=== PATIENT | female | born 1995 | race Caucasian/White ===

== ENCOUNTER 2017-11-24 17:54 | Emergency (ER) | payer MEDICAID ==
[2017-11-24] MEDS ORDERED: Clindamycin HCl 150 MG Cap PO ONE (19:05)
--- NOTE | 2017-11-24 19:14 | EDM.PDOC ---
ED HPI GENERAL MEDICAL PROBLEM - General Chief Complaint: General Stated Complaint: TOOTH PAIN Time Seen by Provider: 11/24/17 19:00 Source of Information: Reports: Patient History Limitations: Reports: No Limitations - History of Present Illness INITIAL COMMENTS - FREE TEXT/NARRATIVE: Specimens single tooth pain 2-3 days duration. She last dose of Tylenol was yesterday. She is allergic to penicillins. 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 - Past Surgical History HEENT Surgical History: Reports: Tonsillectomy, Other (See Below) Other HEENT Surgeries/Procedures: ear surgeries as a child GI Surgical History: Reports: Cholecystectomy Social & Family History - Tobacco Use Smoking Status *Q: Never Smoker - Caffeine Use Caffeine Use: Reports: Soda - Recreational Drug Use Recreational Drug Use: No ED ROS GENERAL - Review of Systems Review Of Systems: See Below Constitutional: Reports: No Symptoms HEENT: Reports: Dental Pain Respiratory: Reports: No Symptoms Cardiovascular: Reports: No Symptoms Endocrine: Reports: No Symptoms GI/Abdominal: Reports: No Symptoms : Reports: No Symptoms Musculoskeletal: Reports: No Symptoms Skin: Reports: No Symptoms Neurological: Reports: No Symptoms Psychiatric: Reports: No Symptoms Hematologic/Lymphatic: Reports: No Symptoms Immunologic: Reports: No Symptoms ED EXAM, GENERAL - Physical Exam Exam: See Below Free Text/Narrative:: A pleasant healthy looking well-nourished well muscled woman in mild distress with dental pain but is able to greet me with a smile. Exam Limited By: No Limitations General Appearance: Alert, WD/WN, Mild Distress Eye Exam: Bilateral Eye: Normal Inspection Ear Exam: Bilateral Ear: Auricle Normal, Canal Normal, TM normal Nose: Normal Inspection Throat/Mouth: Normal Inspection, Normal Lips, Normal Gums, Normal Oropharynx, Normal Voice, No Airway Compromise, Other (#19 tooth the 0 anterior Crohn fracture without gingival erythema or swelling. No cervical adenopathy. Neck is supple. Oropharynx without abnormalities otherwise.) Head: Atraumatic, Normocephalic Respiratory/Chest: No Respiratory Distress, Lungs Clear, No Accessory Muscle Use , Chest Non-Tender Cardiovascular: Normal Peripheral Pulses, Regular Rate, Rhythm, No Murmur GI/Abdominal: Normal Bowel Sounds, Soft, Non-Tender, No Organomegaly, No Distention, No Mass (Female) Exam: Deferred Rectal (Female) Exam: Deferred Back Exam: Other (Not evaluated) Extremities: Normal Inspection Neurological: Alert, Oriented, CN II-XII Intact, Normal Cognition, Normal Gait, No Motor/Sensory Deficits Psychiatric: Normal Affect, Normal Mood Skin Exam: Warm, Dry, Intact, Normal Color Lymphatic: No Adenopathy Course - Vital Signs Last Recorded V/S: Last Vital Signs Temp 36.8 C 11/24/17 18:30 Pulse Resp 17 11/24/17 18:30 BP 147/69 H 11/24/17 18:30 Pulse Ox 100 11/24/17 18:30 - Orders/Labs/Meds Meds: Medications Discontinued Medications Generic Name Dose Route Start Last Admin Trade Name Deangelo PRN Reason Stop Dose Admin Clindamycin HCl 150 mg 11/24/17 19:05 Cleocin PO 11/24/17 19:06 ONETIME ONE Departure - Departure Time of Disposition: 19:10 (Patient is somewhat stoic. She has moderate discomfort to 19 lesion anterior column fracture otherwise the rest of her teeth in good repair. She has multiple fillings in her molars.) Disposition: Home, Self-Care 01 Clinical Impression: Fracture of crown, enamel, and dentin of tooth without pulp exposure - Discharge Information *PRESCRIPTION DRUG MONITORING PROGRAM REVIEWED*: Not Applicable *COPY OF PRESCRIPTION DRUG MONITORING REPORT IN PATIENT KAITY: Not Applicable Referrals: PCP,Not In Area [Primary Care Provider] - Forms: ED Department Discharge Additional Instructions: #19 tooth crown fractured with pain. There may be associated infection that we cannot see in the very right of the tooth. Since you are allergic to penicillins he will be prescribed clindamycin 150 mg 3 times a day 30 tablets . Follow-up with your dentist in the next 5-7 day, earlier if worse. Take Tylenol 1000 mg and ibuprofen 600 mg together every 6 hours. Take no more than 4000 of Tylenol and 2400 of ibuprofen per 24 hours. Cold fluids may be helpful for some people makes her pain worse. Hydrocodone was prescribed for breakthrough pain that doesn't resolve with the Tylenol and ibuprofen taken together
[2017-11-24] MEDS ORDERED: Acetaminophen/HYDROcodone 325-5 MG Tab PO ONE (19:15)
[2017-11-24] MEDS ORDERED: Clindamycin HCl 150 MG Cap ONE (19:23)
== END 2017-11-24 19:25 | disposition home or self-care (01) ==
LOC: FB.ED 17:54
DX: K03.81 Cracked tooth (principal); Z88.0 Allergy status to penicillin
CPT/HCPCS: 99282; 99283; A9270-GY